=== PATIENT | male | born 1990 | race Two or more races ===

== ENCOUNTER 2023-12-21 10:03 | Emergency (ER) | payer BC, OTHER ==
[~2023-12-21] VITALS: Ht 165.1 cm; Wt 81.7 kg
[2023-12-21 11:25] VITALS: BP 130/71; PULSE 69; RESP 18; TEMP 98.6; O2SAT 100
== END 2023-12-21 11:26 | disposition home or self-care (01) ==
LOC: ER 10:03
DX: S00.83XA Contusion of other part of head, initial encounter (principal); R51.9 Headache, unspecified; Z88.5 Allergy status to narcotic agent; W18.09XA Striking against other object with subsequent fall, initial encounter; Y93.89 Activity, other specified; Y92.89 Other specified places as the place of occurrence of the external cause; Y99.8 Other external cause status